=== PATIENT | male | born 1930 | race Caucasian/White ===

== ENCOUNTER 2017-11-19 14:55 | Observation (INO) | payer OTHER, MEDICARE ==
--- NOTE | 2017-11-19 15:01 | EDM.PDOC ---
ED HPI GENERAL MEDICAL PROBLEM - General Stated Complaint: AMB Time Seen by Provider: 11/19/17 15:01 Source of Information: Reports: Patient - History of Present Illness INITIAL COMMENTS - FREE TEXT/NARRATIVE: HISTORY AND PHYSICAL: History of present illness: [Patient arrives with generalized weakness over the last week increasing in severity possible syncopal episode today unknown loss of consciousness or head injury At current no fever nausea vomiting chills sweats uncertain of any loss of consciousness Possible syncopal episodes Review of systems: As per history of present illness and below otherwise all systems reviewed and negative. Past medical history: As per history of present illness and as reviewed below otherwise noncontributory. Surgical history: As per history of present illness and as reviewed below otherwise noncontributory. Social history: No reported history of drug or alcohol abuse. Family history: As per history of present illness and as reviewed below otherwise noncontributory. Physical exam: HEENT: Atraumatic, normocephalic, pupils reactive, negative for conjunctival pallor or scleral icterus, mucous membranes moist, throat clear, neck supple, nontender, trachea midline. Lungs: Clear to auscultation, breath sounds equal bilaterally, chest nontender. Heart: S1S2, regular, negative for clicks, rubs, or JVD. Abdomen: Soft, nondistended, nontender. Negative for masses or hepatosplenomegaly. Negative for costovertebral tenderness. Pelvis: Stable nontender. Genitourinary: Deferred. Rectal: Deferred. Extremities: Atraumatic, negative for cords or calf pain. Neurovascular unremarkable. Neuro: Awake, alert, oriented. Cranial nerves II through XII unremarkable. Cerebellum unremarkable. Motor and sensory unremarkable throughout. Exam nonfocal. Diagnostics: [Lab as below EKG Chest [address] no contrast]] Therapeutics: [Normal saline ] Impression: [Syncope Generalized weakness Chronic history of baseline] Definitive disposition and diagnosis as appropriate pending reevaluation and review of above. - Related Data Allergies Allergy/AdvReac Type Severity Reaction Status Date / Time No Known Allergies Allergy Verified 11/28/14 11:03 Home Meds: Home Meds Ascorbate Calcium [Vitamin C] 1 tab PO DAILY 11/28/14 [History] Aspirin [Adult Low Dose Aspirin EC] 1 tab PO DAILY 11/28/14 [History] Hydrochlorothiazide 0.5 tab PO DAILY 11/28/14 [History] Lisinopril 1 tab PO DAILY 11/28/14 [History] Magnesium Oxide [Magnesium] 420 mg PO BID 11/28/14 [History] Metoprolol Tartrate [Lopressor] 1 tab PO BID 11/28/14 [History] Multivitamin [Daily Multiple Vitamin] 1 tab PO DAILY 11/28/14 [History] atorvaSTATin [Lipitor] 40 mg PO DAILY 11/28/14 [History] Gabapentin [Neurontin] 0 mg PO DAILY 11/19/17 [History] Social & Family History - Tobacco Use Smoking Status *Q: Former Smoker Years of Tobacco use: 25 - Alcohol Use Days Per Week of Alcohol Use: 7 Number of Drinks Per Day: 1 Total Drinks Per Week: 7 - Recreational Drug Use Recreational Drug Use: No ED ROS GENERAL - Review of Systems Review Of Systems: ROS reveals no pertinent complaints other than HPI. ED EXAM, GENERAL - Physical Exam Exam: See Below Course - Vital Signs Last Recorded V/S: Last Vital Signs Temp 99.4 F 11/20/17 08:00 Pulse 84 11/20/17 08:02 Resp 16 11/20/17 08:00 BP 113/52 L 11/20/17 08:02 Pulse Ox 93 L 11/20/17 04:00 - Orders/Labs/Meds Labs: Laboratory Tests 11/19/17 11/19/17 11/19/17 Range/Units 15:08 15:08 15:08 WBC 5.47 (4.0-11.0) K/uL RBC 4.43 L (4.50-5.90) M/uL Hgb 13.3 (13.0-17.0) g/dL Hct 40.1 (38.0-50.0) % MCV 90.5 (80.0-98.0) fL MCH 30.0 (27.0-32.0) pg MCHC 33.2 (31.0-37.0) g/dL RDW Std Deviation 50.7 (28.0-62.0) fl RDW Coeff of Jeff 15 (11.0-15.0) % Plt Count 109 L (150-400) K/uL MPV 10.70 (7.40-12.00) fL Neut % (Auto) 64.8 (48.0-80.0) % Lymph % (Auto) 19.4 (16.0-40.0) % Mchenry % (Auto) 13.0 (0.0-15.0) % Eos % (Auto) 2.6 (0.0-7.0) % Baso % (Auto) 0.2 (0.0-1.5) % Neut # (Auto) 3.6 (1.4-5.7) K/uL Lymph # (Auto) 1.1 (0.6-2.4) K/uL Mchenry # (Auto) 0.7 (0.0-0.8) K/uL Eos # (Auto) 0.1 (0.0-0.7) K/uL Baso # (Auto) 0.0 (0.0-0.1) K/uL Nucleated RBC % 0.0 /100WBC Nucleated RBCs # 0 K/uL INR 1.06 (0.86-1.11) Sodium 138 (136-146) mmol/L Potassium 4.0 (3.5-5.1) mmol/L Chloride 106 (98-110) mmol/L Carbon Dioxide 20 L (21-31) mmol/L BUN 28 H (6.0-23.0) mg/dL Creatinine 1.7 H (0.6-1.5) mg/dL Est Cr Clr Drug Dosing 37.28 mL/min Estimated GFR (MDRD) 38.4 ml/min Glucose 169 H (60-110) mg/dL Calcium 8.6 L (8.8-10.8) mg/dL Total Bilirubin 1.1 (0.1-1.5) mg/dL AST 26 (5-40) IU/L ALT 17 (8-54) IU/L Alkaline Phosphatase 63 (40-150) Creatine Kinase 94 (9-236) IU/L CK-MB (CK-2) 1.2 (0-6.6) ng/ml Troponin I < 0.10 (0.0-0.29) NG/ML B-Natriuretic Peptide (<100) PG/ML Total Protein 7.2 (6.0-8.0) g/dL Albumin 3.6 (3.4-4.8) g/dL Globulin 3.6 H (2.0-3.5) g/dL Albumin/Globulin Ratio 1.0 L (1.3-2.8) Urine Color Urine Appearance Urine pH (5.0-8.0) Ur Specific [place] (1.001-1.035) Urine Protein (NEGATIVE) mg/dL Urine Glucose (UA) (NEGATIVE) mg/dL Urine Ketones (NEGATIVE) mg/dL Urine Occult Blood (NEGATIVE) Urine Nitrite (NEGATIVE) Urine Bilirubin (NEGATIVE) Urine Urobilinogen (<2.0) EU/dL Ur Leukocyte Esterase (NEGATIVE) Urine RBC (0-2/HPF) Urine WBC (0-5/HPF) Ur Epithelial Cells (NONE-FEW) Urine Bacteria (NEGATIVE) Hyaline Casts (0-2/LPF) Urine Mucus (NONE-MOD) Ethyl Alcohol < 10.0 mg/dL 11/19/17 11/19/17 Range/Units 15:08 16:31 WBC (4.0-11.0) K/uL RBC (4.50-5.90) M/uL Hgb (13.0-17.0) g/dL Hct (38.0-50.0) % MCV (80.0-98.0) fL MCH (27.0-32.0) pg MCHC (31.0-37.0) g/dL RDW Std Deviation (28.0-62.0) fl RDW Coeff of Jeff (11.0-15.0) % Plt Count (150-400) K/uL MPV (7.40-12.00) fL Neut % (Auto) (48.0-80.0) % Lymph % (Auto) (16.0-40.0) % Mchenry % (Auto) (0.0-15.0) % Eos % (Auto) (0.0-7.0) % Baso % (Auto) (0.0-1.5) % Neut # (Auto) (1.4-5.7) K/uL Lymph # (Auto) (0.6-2.4) K/uL Mchenry # (Auto) (0.0-0.8) K/uL Eos # (Auto) (0.0-0.7) K/uL Baso # (Auto) (0.0-0.1) K/uL Nucleated RBC % /100WBC Nucleated RBCs # K/uL INR (0.86-1.11) Sodium (136-146) mmol/L Potassium (3.5-5.1) mmol/L Chloride (98-110) mmol/L Carbon Dioxide (21-31) mmol/L BUN (6.0-23.0) mg/dL Creatinine (0.6-1.5) mg/dL Est Cr Clr Drug Dosing mL/min Estimated GFR (MDRD) ml/min Glucose (60-110) mg/dL Calcium (8.8-10.8) mg/dL Total Bilirubin (0.1-1.5) mg/dL AST (5-40) IU/L ALT (8-54) IU/L Alkaline Phosphatase (40-150) Creatine Kinase (9-236) IU/L CK-MB (CK-2) (0-6.6) ng/ml Troponin I (0.0-0.29) NG/ML B-Natriuretic Peptide 123 H (<100) PG/ML Total Protein (6.0-8.0) g/dL Albumin (3.4-4.8) g/dL Globulin (2.0-3.5) g/dL Albumin/Globulin Ratio (1.3-2.8) Urine Color YELLOW Urine Appearance CLEAR Urine pH 5.5 (5.0-8.0) Ur Specific [place] 1.025 (1.001-1.035) Urine Protein NEGATIVE (NEGATIVE) mg/dL Urine Glucose (UA) NEGATIVE (NEGATIVE) mg/dL Urine Ketones NEGATIVE (NEGATIVE) mg/dL Urine Occult Blood NEGATIVE (NEGATIVE) Urine Nitrite NEGATIVE (NEGATIVE) Urine Bilirubin NEGATIVE (NEGATIVE) Urine Urobilinogen 0.2 (<2.0) EU/dL Ur Leukocyte Esterase NEGATIVE (NEGATIVE) Urine RBC 0-1 (0-2/HPF) Urine WBC 0-1 (0-5/HPF) Ur Epithelial Cells RARE (NONE-FEW) Urine Bacteria RARE (NEGATIVE) Hyaline Casts 0-1 (0-2/LPF) Urine Mucus LIGHT (NONE-MOD) Ethyl Alcohol mg/dL Meds: Medications Discontinued Medications Generic Name Dose Route Start Last Admin Trade Name Freq PRN Reason Stop Dose Admin Acetaminophen 650 mg 11/19/17 20:54 Tylenol PO Q6H PRN Pain Ascorbic Acid 500 mg 11/20/17 09:00 11/20/17 08:01 Vitamin C PO 500 mg DAILY [facility] Administration Aspirin 81 mg 11/20/17 09:00 11/20/17 08:01 Halfprin PO 81 mg DAILY [facility] Administration Atorvastatin Calcium 40 mg 11/20/17 09:00 11/20/17 08:01 Lipitor PO 40 mg DAILY [facility] Administration Enoxaparin Sodium 40 mg 11/19/17 18:00 11/20/17 08:01 Lovenox SUBCUT 40 mg DAILY [facility] Administration Gabapentin 100 mg 11/20/17 09:00 11/20/17 08:01 Neurontin PO 100 mg DAILY [facility] Administration Hydrochlorothiazide mg 11/20/17 09:00 Hydrochlorothiazide PO 11/20/17 09:00 DAILY [facility] Hydrochlorothiazide 12.5 mg 11/20/17 09:00 11/20/17 08:01 Hydrochlorothiazide PO 12.5 mg DAILY [facility] Administration Sodium Chloride 1,000 mls @ 125 mls/hr 11/19/17 15:15 11/20/17 00:52 Normal Saline IV 125 mls/hr STAT [facility] Administration Lisinopril 10 mg 11/20/17 09:00 11/20/17 08:01 Prinivil PO 10 mg DAILY [facility] Administration Magnesium Oxide 400 mg 11/19/17 21:00 11/20/17 08:01 Magnesium Oxide PO 400 mg BID [facility] Administration Metoprolol Tartrate 100 mg 11/19/17 18:30 11/19/17 22:17 Lopressor PO Not Given BIDMEALS [facility] Metoprolol Tartrate 50 mg 11/19/17 22:06 Lopressor PO BIDMEALS [facility] Metoprolol Tartrate 50 mg 11/19/17 23:00 11/20/17 08:02 Lopressor PO 50 mg BIDMEALS [facility] Administration Multivitamins/Minerals/Vitamin C 1 tab 11/20/17 09:00 11/20/17 08:02 Tab-A-Yasmin PO 1 tab DAILY [facility] Administration Ondansetron HCl 4 mg 11/19/17 17:59 Zofran IVPUSH Q4H PRN Nausea Departure - Departure Time of Disposition: 07:28 Disposition: Admitted As Inpatient 67 Condition: Fair Clinical Impression: Syncope, Generalized weakness - Discharge Information
[2017-11-19] MEDS: Sodium Chloride 0.9% 1,000 ML IV SCH (15:23)
[2017-11-19 15:41] LABS: CHLORIDE,CL 106 mmol/L (98-110); SODIUM,NA 138 mmol/L (136-146)
--- NOTE | 2017-11-19 15:52 | CR ---
EXAMINATION: Portable chest radiograph. HISTORY: Syncope. FINDINGS: The cardiomediastinal silhouette is within normal limits. No pulmonary infiltrates, effusions or pneu mothorax. The aorta is ectatic and tortuous. Osseous structures appear unremarkable. IMPRESSION: No acute cardiopulmonary process.
--- NOTE | 2017-11-19 15:59 | CT ---
EXAMINATION: Non contrast CT head. Coronal and sagittal reformats. HISTORY: Syncope FINDINGS: No evidence of intra or extra axial hemorrhage, mass, midline shift, hydrocephalus or edema. Mild ge neralized atrophy. No hypoattenuation changes in the major vascular territories to suggest acute infarct. No abnormal intracranial calcifications are detected. No evidence of substantial vascular calcificat ions. Mild mucosal thickening within the right maxillary sinus. Mastoid air cells are clear. Leftward devia tion of the nasal septum is noted. Pituitary fossa appears unremarkable. The calvarium is intact. No evidence of skull fracture. IMPRESSION: No acute intracranial findings.
[2017-11-19] MEDS ORDERED: Ondansetron 4 MG/2 ML SDV IVPUSH PRN (17:59)
--- NOTE | 2017-11-19 18:23 | PCM.HP ---
H&P History of Present Illness - General Date of Service: 11/19/17 Admit Problem/Dx: Admission Diagnosis/Problem Admission Diagnosis/Problem Syncope - History of Present Illness Initial Comments - Free Text/Narative: 87-year-old male with a past history of hypertension, coronary artery disease with stent placement presenting today after a syncopal episode. Patient is accompanied by his . She tells me that earlier today while having breakfast patient was sitting down and passed out. She tells me that his eyes rolled back as mouth was wide open and he was not responding but breathing which lasted for what felt to her a couple of minutes. Afterwards the patient was able to compensate with her. As for the patient, he tells me that he never had cellulitis before. He tells me that for the past 2 weeks now he has been having "flulike symptoms". He tells me that he has had episodes of vomiting along with diarrhea. Currently however he does not feel nauseous. He denies any headaches, blurry vision, chest pain, dyspnea, palpitations, numbness or tingling. He has no current complaints. ER course: EKG normal sinus rhythm Chest x-ray unremarkable CT head unremarkable BMP significant for a BUN/ creatinine 28/1.7 - Related Data Allergies/Adverse Reactions: Allergies Allergy/AdvReac Type Severity Reaction Status Date / Time No Known Allergies Allergy Verified 11/28/14 11:03 Home Medications: Home Meds Ascorbate Calcium [Vitamin C] 1 tab PO DAILY 11/28/14 [History] Aspirin [Adult Low Dose Aspirin EC] 1 tab PO DAILY 11/28/14 [History] Hydrochlorothiazide 0.5 tab PO DAILY 11/28/14 [History] Lisinopril 1 tab PO DAILY 11/28/14 [History] Magnesium Oxide [Magnesium] 420 mg PO BID 11/28/14 [History] Metoprolol Tartrate [Lopressor] 1 tab PO BID 11/28/14 [History] Multivitamin [Daily Multiple Vitamin] 1 tab PO DAILY 11/28/14 [History] atorvaSTATin [Lipitor] 40 mg PO DAILY 11/28/14 [History] Gabapentin [Neurontin] 0 mg PO DAILY 11/19/17 [History] Past Medical History Cardiovascular History: Reports: Hypertension Other Cardiovascular History: unsure of other heart hx - Infectious Disease History Infectious Disease History: Reports: Chicken Pox, Measles, Mumps Social & Family History - Family History Family Medical History: Noncontributory - Tobacco Use Smoking Status *Q: Former Smoker Years of Tobacco use: 25 Used Tobacco, but Quit: Yes Month Tobacco Last Used: 1969 - Caffeine Use Caffeine Use: Reports: Coffee - Alcohol Use Days Per Week of Alcohol Use: 7 Number of Drinks Per Day: 1 Total Drinks Per Week: 7 - Recreational Drug Use Recreational Drug Use: No H&P Review of Systems - Review of Systems: Review Of Systems: See Below General: Reports: No Symptoms HEENT: Reports: No Symptoms Pulmonary: Reports: No Symptoms Cardiovascular: Reports: Syncope. Denies: Chest Pain, Palpitations, Dyspnea on Exertion, Orthopnea, Edema Gastrointestinal: Reports: Other (Recent history of vomiting and diarrhea but no acute symptoms.) Genitourinary: Reports: No Symptoms Musculoskeletal: Reports: No Symptoms Skin: Reports: No Symptoms Psychiatric: Reports: No Symptoms Neurological: Reports: No Symptoms Hematologic/Lymphatic: Reports: No Symptoms Immunologic: Reports: No Symptoms Exam - Exam Exam: See Below - Vital Signs Vital Signs: Last Vital Signs Temp 36.5 C 11/19/17 14:55 Pulse 67 11/19/17 14:55 Resp 18 11/19/17 14:55 BP 113/59 L 11/19/17 14:55 Pulse Ox 95 11/19/17 14:55 Weight: 90.718 kg - Exam General: Alert, Oriented, Cooperative HEENT: Conjunctiva Clear, EACs Clear Neck: Supple, Trachea Midline Lungs: Normal Respiratory Effort, Wheezing Cardiovascular: Regular Rate, Regular Rhythm GI/Abdominal Exam: Normal Bowel Sounds, Soft, Non-Tender Back Exam: Normal Inspection, Full Range of Motion. No: CVA Tenderness (L), CVA Tenderness (R) Extremities: Normal Inspection, Normal Range of Motion, Non-Tender, No Pedal Edema, Normal Capillary Refill Peripheral Pulses: 3+: Dorsalis Pedis (L), Dorsalis Pedis (R) Skin: Warm, Dry Neurological: Cranial Nerves Intact Neuro Extensive - Mental Status: Alert, Oriented x3, Normal Mood/Affect Neuro Extensive - Motor, Sensory, Reflexes: CN II-XII Intact DTR: 2+: Patella (L), Patella (R) Psychiatric: Alert, Normal Affect, Normal Mood - Patient Data Result Diagrams: 11/19/17 15:08 11/19/17 15:08 *Q Meaningful Use (ADM) - VTE *Q VTE Criteria *Q: - Stroke *Q Stroke Criteria *Q: - AMI *Q AMI Criteria *Q: Problem List Initiated/Reviewed/Updated: Yes Orders Last 24hrs: Active Orders 24 hr Category Date Time Status Oxygen Therapy [RC] PRN Care 11/19/17 17:59 Active Telemetry Monitoring [Cardiac Monitoring] [RC] . Care 11/19/17 18:01 Active DIRECTED Up ad Kika [RC] ASDIRECTED Care 11/19/17 17:59 Active VTE/DVT Education [RC] PER UNIT ROUTINE Care 11/19/17 17:59 Active Vital Signs [RC] Q4H Care 11/19/17 17:59 Active Regular Diet [DIET] Diet 11/19/17 Breakfast Active Echo Comp wo Cont [US] Routine Exams 11/19/17 18:03 Ordered B-TYPE NATRIURETIC PEPTIDE,BNP [CHEM] Routine Lab 11/19/17 15:08 Received BASIC METABOLIC PANEL,BMP [CHEM] AM Lab 11/20/17 05:11 Ordered CBC WITH AUTO DIFF [HEME] AM Lab 11/20/17 05:11 Ordered Ascorbate Calcium [Vitamin C] Med 11/20/17 09:00 Ordered 1 tab PO DAILY Aspirin [Halfprin] Med 11/20/17 09:00 Active 81 mg PO DAILY Enoxaparin [Lovenox] Med 11/19/17 18:00 Active 40 mg SUBCUT DAILY Gabapentin [Neurontin] Med 11/20/17 09:00 Active 100 mg PO DAILY Hydrochlorothiazide Med 11/20/17 09:00 Active 12.5 mg PO DAILY Lisinopril [Prinivil] Med 11/20/17 09:00 Active 10 mg PO DAILY Magnesium Oxide [Magnesium] Med 11/19/17 21:00 Ordered 420 mg PO BID Metoprolol Tartrate Med 11/19/17 21:00 Ordered 1 tab PO BID Multivitamins [Tab-A-Yasmin] Med 11/20/17 09:00 Active 1 tab PO DAILY Ondansetron [Zofran] Med 11/19/17 17:59 Active 4 mg IVPUSH Q4H PRN atorvaSTATin [Lipitor] Med 11/20/17 09:00 Active 40 mg PO DAILY Resuscitation Status Routine Resus Stat 11/19/17 17:59 Ordered Medication Orders Aspirin (Halfprin) 81 mg PO DAILY [facility] Atorvastatin Calcium (Lipitor) 40 mg PO DAILY [facility] Enoxaparin Sodium (Lovenox) 40 mg SUBCUT DAILY [facility] Gabapentin (Neurontin) 100 mg PO DAILY [facility] Hydrochlorothiazide (Hydrochlorothiazide) 12.5 mg PO DAILY [facility] Sodium Chloride (Normal Saline) 1,000 mls @ 125 mls/hr IV STAT [facility] Last Admin: 11/19/17 15:23 Dose: 125 mls/hr Lisinopril (Prinivil) 10 mg PO DAILY [facility] Multivitamins/Minerals/Vitamin C (Tab-A-Yasmin) 1 tab PO DAILY [facility] Non-Formulary Medication (Ascorbate Calcium [Vitamin C]) 1 tab PO DAILY [facility] Non-Formulary Medication (Magnesium Oxide [Magnesium]) 420 mg PO BID [facility] Non-Formulary Medication (Metoprolol Tartrate) 1 tab PO BID [facility] Ondansetron HCl (Zofran) 4 mg IVPUSH Q4H PRN PRN Reason: Nausea Assessment/Plan Comment:: Assessment: #1. Syncope #2. History of coronary artery disease, hypertension, hyperlipidemia, coronary stent placement #3. Elevated bun/creatinine Plan: #1. Admit to the floor for observation #2. Continuous telemetry #3. Regular diet #4. Vital signs per floor routine. #5. Lovenox for DVT prophylaxis #6. Echocardiogram #7. CBC, BMP ordered for tomorrow morning #8. Follow up on BNP #9. Continue home medications
[2017-11-19] MEDS ORDERED: Metoprolol Tartrate 50 MG Tab PO SCH ×2 (18:30→22:06)
[2017-11-19] MEDS: Enoxaparin 40 MG/0.4 ML Syringe SUBCUT SCH (19:57)
[2017-11-19] MEDS ORDERED: Acetaminophen 325 MG Tab PO PRN (20:54)
[2017-11-19] MEDS: Magnesium Oxide 400 MG Tab PO SCH (21:01)
[2017-11-19] MEDS: Metoprolol Tartrate 50 MG Tab PO SCH (22:58)
[2017-11-20] MEDS: Sodium Chloride 0.9% 1,000 ML IV SCH (00:52)
[2017-11-20 08:00] VITALS: BP 113/52
[2017-11-20] MEDS: Magnesium Oxide 400 MG Tab PO SCH (08:01)
[2017-11-20] MEDS: Enoxaparin 40 MG/0.4 ML Syringe SUBCUT SCH (08:01)
[2017-11-20] MEDS: Metoprolol Tartrate 50 MG Tab PO SCH (08:02)
[2017-11-20] MEDS ORDERED: atorvaSTATin 40 MG Tab PO SCH (09:00)
[2017-11-20] MEDS ORDERED: Gabapentin 100 MG Cap PO SCH (09:00)
[2017-11-20] MEDS ORDERED: Lisinopril 10 MG Tab PO SCH (09:00)
[2017-11-20] MEDS ORDERED: Hydrochlorothiazide 12.5 MG Cap PO SCH ×2 (09:00)
[2017-11-20] MEDS ORDERED: Ascorbic Acid 500 MG Tab PO SCH (09:00)
[2017-11-20] MEDS ORDERED: Multivitamin Tab PO SCH (09:00)
[2017-11-20] MEDS ORDERED: Aspirin 81 MG Tab.EC PO SCH (09:00)
--- NOTE | 2017-11-20 09:18 | PCM.DCSUM1 ---
Discharge Summary - Discharge Data Discharge Date: 11/20/17 Discharge Disposition: Home, Self-Care 01 Condition: Good - Patient Summary/Data Hospital Course: 87-year-old male with a past history of hypertension, coronary artery disease who was admitted after a syncopal episode. Patient had been having "flue like symptoms" with vomiting and diarrhea. He was monitored overnight with no events on telemetry. Echocardiogram was obtain but report pending at time of discharge. It was felt his syncope was likely due to dehydration considering his acute kidney. He was given IV fluids with improvement of his creatinne from 1.7 to 1.3. This morning he reports no symptoms and is requesting discharge home. [facility] - Patient Instructions Diet: Regular Diet as Tolerated Activity: As Tolerated - Discharge Plan Home Medications: Home Meds Ascorbate Calcium [Vitamin C] 1 tab PO DAILY 11/28/14 [History] Aspirin [Adult Low Dose Aspirin EC] 1 tab PO DAILY 11/28/14 [History] Hydrochlorothiazide 0.5 tab PO DAILY 11/28/14 [History] Lisinopril 1 tab PO DAILY 11/28/14 [History] Magnesium Oxide [Magnesium] 420 mg PO BID 11/28/14 [History] Metoprolol Tartrate [Lopressor] 1 tab PO BID 11/28/14 [History] Multivitamin [Daily Multiple Vitamin] 1 tab PO DAILY 11/28/14 [History] atorvaSTATin [Lipitor] 40 mg PO DAILY 11/28/14 [History] Gabapentin [Neurontin] 0 mg PO DAILY 11/19/17 [History] Patient Handouts: Syncope, [id number] Referrals: Sulema Villa, HPLC CHEMIST [Primary Care Provider] - 11/27/17 1:30 pm - Patient Data Vitals - Most Recent: Last Vital Signs Temp 37.4 C 11/20/17 08:00 Pulse 84 11/20/17 08:02 Resp 16 11/20/17 08:00 BP 113/52 L 11/20/17 08:02 Pulse Ox 93 L 11/20/17 04:00 Weight - Most Recent: 84.005 kg I&O - Last 24 hours: Intake & Output 11/19/17 11/20/17 11/20/17 22:59 06:59 14:59 Intake Total 400 Balance 400 Lab Results - Last 24 hrs: Laboratory Results - last 24 hr 11/19/17 11/20/17 11/20/17 Range/Units 23:00 04:57 04:57 WBC 4.34 (4.0-11.0) K/uL RBC 4.12 L (4.50-5.90) M/uL Hgb 12.0 L (13.0-17.0) g/dL Hct 37.2 L (38.0-50.0) % MCV 90.3 (80.0-98.0) fL MCH 29.1 (27.0-32.0) pg MCHC 32.3 (31.0-37.0) g/dL RDW Std Deviation 50.2 (28.0-62.0) fl RDW Coeff of Jeff 15 (11.0-15.0) % Plt Count 133 L (150-400) K/uL MPV 9.70 (7.40-12.00) fL Add Manual Diff YES Neutrophils % (Manual) 51 (48.0-80.0) % Lymphocytes % (Manual) 30 (16.0-40.0) % Monocytes % (Manual) 17 H (0.0-15.0) % Eosinophils % (Manual) 2 (0.0-7.0) % Nucleated RBC % 0.0 /100WBC Absolute Seg Neuts 2.2 (1.4-5.7) Lymphocytes # (Manual) 1.3 (0.6-2.4) Monocytes # (Manual) 0.7 (0.0-0.8) Eosinophils # (Manual) 0.1 (0.0-0.7) Nucleated RBCs # 0 K/uL Sodium 140 (136-146) mmol/L Potassium 3.8 (3.5-5.1) mmol/L Chloride 111 H (98-110) mmol/L Carbon Dioxide 19 L (21-31) mmol/L BUN 29 H (6.0-23.0) mg/dL Creatinine 1.3 (0.6-1.5) mg/dL Est Cr Clr Drug Dosing 48.46 mL/min Estimated GFR (MDRD) 52.3 ml/min Glucose 84 (60-110) mg/dL Calcium 8.5 L (8.8-10.8) mg/dL Ur Random Creatinine 127.1 mg/dL Ur Random Sodium 113.0 mmol/L Med Orders - Current: Current Medications Acetaminophen (Tylenol) 650 mg PO Q6H PRN PRN Reason: Pain Ascorbic Acid (Vitamin C) 500 mg PO DAILY [facility] Last Admin: 11/20/17 08:01 Dose: 500 mg Aspirin (Halfprin) 81 mg PO DAILY [facility] Last Admin: 11/20/17 08:01 Dose: 81 mg Atorvastatin Calcium (Lipitor) 40 mg PO DAILY [facility] Last Admin: 11/20/17 08:01 Dose: 40 mg Enoxaparin Sodium (Lovenox) 40 mg SUBCUT DAILY [facility] Last Admin: 11/20/17 08:01 Dose: 40 mg Gabapentin (Neurontin) 100 mg PO DAILY [facility] Last Admin: 11/20/17 08:01 Dose: 100 mg Hydrochlorothiazide (Hydrochlorothiazide) 12.5 mg PO DAILY [facility] Last Admin: 11/20/17 08:01 Dose: 12.5 mg Sodium Chloride (Normal Saline) 1,000 mls @ 125 mls/hr IV STAT [facility] Last Admin: 11/20/17 00:52 Dose: 125 mls/hr Lisinopril (Prinivil) 10 mg PO DAILY [facility] Last Admin: 11/20/17 08:01 Dose: 10 mg Magnesium Oxide (Magnesium Oxide) 400 mg PO BID [facility] Last Admin: 11/20/17 08:01 Dose: 400 mg Metoprolol Tartrate (Lopressor) 50 mg PO BIDMEALS [facility] Last Admin: 11/20/17 08:02 Dose: 50 mg Multivitamins/Minerals/Vitamin C (Tab-A-Yasmin) 1 tab PO DAILY [facility] Last Admin: 11/20/17 08:02 Dose: 1 tab Ondansetron HCl (Zofran) 4 mg IVPUSH Q4H PRN PRN Reason: Nausea Discontinued Medications Hydrochlorothiazide (Hydrochlorothiazide) mg PO DAILY [facility] Stop: 11/20/17 09:00 Metoprolol Tartrate (Lopressor) 100 mg PO BIDMEALS [facility] Last Admin: 11/19/17 22:17 Dose: Not Given Metoprolol Tartrate (Lopressor) 50 mg PO BIDMEALS [facility] *Q Meaningful Use (DIS) - VTE *Q VTE Criteria *Q: - Stroke *Q Stroke Criteria *Q: - AMI *Q AMI Criteria *Q:
--- NOTE | 2017-11-21 16:24 | ECHO ---
The echocardiogram report can be seen in this patient's EMR ([facility] medical records) in the Reports section. The report has also been scanned into PACS and can be seen there. DIANNA
== END 2017-11-20 12:45 | disposition home or self-care (01) ==
LOC: MW.ED 14:55 → MW.MS 17:04
PROVIDERS: ADMIT Internal Medicine; ATTEND Internal Medicine
DX: R55 Syncope and collapse (principal); E78.5 Hyperlipidemia, unspecified; R79.89 Other specified abnormal findings of blood chemistry; I10 Essential (primary) hypertension; I25.10 Atherosclerotic heart disease of native coronary artery without angina pectoris; Z79.82 Long term (current) use of aspirin; Z79.899 Other long term (current) drug therapy; Z95.5 Presence of coronary angioplasty implant and graft; Z87.891 Personal history of nicotine dependence
CPT/HCPCS: 36415; 70450; 71045; 80048; 80053; 81001; 82550; 82553; 82570; 83880; 84300; 84484; 85025; 85610; 93005; 93306; 96360; 96361; 96372; 99285; A9270; G0378; G0480; J1650; J7040